=== PATIENT | male | born 1985 | race Asian ===

== ENCOUNTER 2018-08-26 05:35 | Emergency (ER) | payer OTHER ==
--- NOTE | 2018-08-26 05:56 | PDOC ---
Attending Attestation - Resident Resident Name: Alen Church - ED Attending Attestation I have performed the following: I have examined & evaluated the patient, The case was reviewed & discussed with the resident, I agree w/resident's findings & plan - HPI HPI: 08/26/18 06:34 33-year-old male with multiple nonspecific complaints asking his blood pressure be checked. He was had intermittent body pains including headache, foot pain and pain radiating to his torso none of which are present at this time. He does have a primary care physician but has not notified him of any of these symptoms. The intermittent foot ache has been present for 2-3 months. There has been no chest pain nausea vomiting diarrhea or urinary symptoms. - Physicial Exam PE: 08/26/18 06:35 agree with resident's exam - Medical Decision Making 08/26/18 06:36 33-year-old male with multiple nonspecific complaints, currently asymptomatic and using his telephone Blood pressure 145/98 on arrival Patient offered blood work in the emergency department, patient states he prefers to do the work up with his primary care physician He was advised that should he develop any symptoms including return of headache , chest pain or shortness of breath to return to the emergency department In regards to his foot pain, it is asymptomatic and patient is ambulating with full weight bear without difficulty
[2018-08-26] MEDS ORDERED: KETOROLAC TROMETHAMINE 30 MG/1 ML VIAL IVPUSH ONE (06:03)
[2018-08-26] MEDS ORDERED: METOCLOPRAMIDE HCL INJECTION 10 MG/2 ML VIAL IVPB ONE (06:03)
[2018-08-26 06:08] VITALS: PULSE 108; BMI 69.0
--- NOTE | 2018-08-26 06:09 | PDOC ---
History of Present Illness - General Stated Complaint: BLOOD PRESSURE PROBLEM Time Seen by Provider: 08/26/18 05:50 History Source: Patient Exam Limitations: No Limitations - History of Present Illness Initial Comments: 08/26/18 06:06 33M with no PMH who presents with multiple complaints. Pt states that he's had a fever for 1 day with headache. He admits to checking his BP "a few days ago" and it was "high". He does not recall how high it was. He also states that he's had 3-4 months of intermittent R dorsal foot pain without exacerbating or alleviating factors. He is unsure of trauma or injury to his R foot. He denies chills, cough, nausea, vomiting, CP, SOB, abdominal pain, rashes, or swelling. Past History - Past Medical History Allergies/Adverse Reactions: Allergies Allergy/AdvReac Type Severity Reaction Status Date / Time No Known Allergies Allergy Verified 08/26/18 06:08 Home Medications: Ambulatory Orders NK [No Known Home Medication] 08/26/18 Review of Systems - Review of Systems Able to Perform ROS?: Yes Comments:: 08/26/18 06:07 GENERAL/CONSTITUTIONAL: + for fever and elevated BP. No chills. No weakness. HEAD, EYES, EARS, NOSE AND THROAT: No change in vision. No ear pain or discharge. No sore throat. CARDIOVASCULAR: No chest pain, palpitations, or lightheadedness. RESPIRATORY: No cough, wheezing, shortness of breath, or hemoptysis. GASTROINTESTINAL: No nausea, vomiting, diarrhea, constipation, or abdominal pain. GENITOURINARY: No dysuria, frequency, hematuria, or change in urination. MUSCULOSKELETAL: + for R foot pain. No neck or back pain. SKIN: No rash or lesions. NEUROLOGIC: + for headache. No numbness, tingling, focal weakness, loss of consciousness, or change in strength/sensation. Is the patient limited Estonian proficient: No *Physical Exam - Physical Exam Comments: 08/26/18 06:08 GENERAL: Well developed, well nourished. Awake and alert. No acute distress. HEENT: Normocephalic, atraumatic. Hearing grossly normal. Moist mucous membranes. PERRLA, EOMI. No conjunctival pallor. Sclera are non-icteric. NECK: Supple. Full ROM. No JVD. CARDIOVASCULAR: Regular rate and rhythm. No murmurs, rubs, or gallops. PULMONARY: No evidence of respiratory distress. Lungs clear to auscultation bilaterally. No wheezing, rales or rhonchi. ABDOMINAL: Soft. Non-tender. Non-distended. No rebound or guarding. GENITOURINARY: No CVA tenderness bilaterally. MUSCULOSKELETAL: Normal range of motion at all joints. No bony deformities or tenderness. EXTREMITIES: No cyanosis. No clubbing. No edema. No calf tenderness or swelling. SKIN: Warm and dry. Normal capillary refill. No rashes. No jaundice. NEUROLOGICAL: Alert, awake, appropriate. Cranial nerves 2-12 grossly intact. Normal speech. Gait is normal without ataxia. PSYCHIATRIC: Cooperative. Good eye contact. Appropriate mood and affect. Medical Decision Making - Medical Decision Making 08/26/18 06:08 33M with no PMH who presents with multiple complaints. VS show elevated BP. Will check Cr to evaluate renal damage 2/2 HTN. Will give toradol and reglan for headache and foot pain. Will reassess after labs. 08/26/18 06:24 Attending had discussion with patient who prefers to follow up on an outpatient basis. Pt denied all complaints to attending and states he only wanted BP check and refused bloodwork. He was advised to return if he develops any concerning symptoms. *DC/Admit/Observation/Transfer Diagnosis at time of Disposition: High blood pressure Qualifiers: Hypertension type: unspecified Qualified Code(s): I10 - Essential (primary) hypertension - Discharge Dispostion Disposition: HOME Condition at time of disposition: Stable Decision to Admit order: No - Referrals Referrals: Medhat Fuller MD [Primary Care Provider] - - Patient Instructions Printed Discharge Instructions: DI for High Blood Pressure Additional Instructions: Your ER visit is not complete until your follow up with your primary care physician. Please follow up with your primary care physician in 1-2 days. Please return to the ER if you have any signs or symptoms of chest pain, shortness of breath, uncontrollable fever, chills, nausea, vomiting, numbness, tingling, or weakness in any part of your body, changes in vision, or slurred speech. Please return to the ER if symptoms persist, worsen, or new symptoms arise. - Post Discharge Activity
[2018-08-26] MEDS ORDERED: amLODIPine BESYLATE 5 MG TABLET (FP) PO ONE (06:13)
[2018-08-26] MEDS ORDERED: METOCLOPRAMIDE HCL INJECTION 10 MG/2 ML VIAL ONE (06:15)
[2018-08-26] MEDS ORDERED: KETOROLAC TROMETHAMINE 30 MG/1 ML VIAL ONE (06:15)
[2018-08-26 06:37] VITALS: BP 145/100; TEMP 99.2
== END 2018-08-26 07:07 | disposition home or self-care (01) ==
LOC: JER 05:35
DX: I10 Essential (primary) hypertension (principal)
CPT/HCPCS: 99282-25

== ENCOUNTER 2022-02-22 23:26 | Emergency (ER) | payer OTHER ==
[2022-02-22 23:40] VITALS: BP 170/104; PULSE 76; RESP 18; TEMP 97.9; BMI 31.3
== END 2022-02-23 03:36 | disposition home or self-care (01) ==
LOC: JER 23:26
DX: M79.671 Pain in right foot (principal)
CPT/HCPCS: 73590-TC-RT-FY; 73610-TC-RT-FY; 73630-TC-RT-FY; 99284-25